=== PATIENT | female | born 1950 | race Caucasian/White ===

== ENCOUNTER 2016-11-26 23:16 | Emergency (ER) | payer OTHER ==
[~2016-11-26] VITALS: Ht 160 cm; Wt 63.5 kg
[~2016-11-26 23:16] MED LIST: ATIVAN1 MG PO; COGENTIN0.5 MG PO; COLACE100 MG PO; COMBIVIR1 TABLET PO; DIOVAN HCT 11 TABLET PO; DIOVAN HCT 31 TABLE1 PO; DOCUSATE SODIU100 MG PO; GLUCOPHAGE500 MG PO; GLUCOPHAGE850 MG PO; LORAZEPAM1 MG PO; METFORMIN HCL500 MG PO; PROLIXIN10 MG PO; TYLENOL EXTRA500 MG PO
[2016-11-26 23:28] VITALS: BP 159/96
[2016-11-27] MEDS ORDERED: NAPROXEN500 MG PO (00:37)
== END 2016-11-27 00:56 | disposition home or self-care (01) ==
LOC: RME 23:16 → EME 23:16 → RME 11-27 00:56
DX: I80.02 Phlebitis and thrombophlebitis of superficial vessels of left lower extremity (principal); F17.200 Nicotine dependence, unspecified, uncomplicated
CPT/HCPCS: 99281; 99284

== ENCOUNTER → 2017-10-23 | Outpatient (CLI) | payer OTHER ==
[~2017-10-23] MED LIST changes: +NAPROXEN500 MG PO
== END | disposition home or self-care (01) ==
LOC: NUC 09:00
DX: G25.0 Essential tremor (principal)
CPT/HCPCS: 78607; A9584